=== PATIENT | male | born 1955 | race Caucasian/White ===

== ENCOUNTER 2021-12-17 04:46 | Inpatient (IN) ==
[2021-12-17] MEDS ORDERED: Naloxone 0.4 MG/ML INJ IVP PRN (11:02)
[2021-12-17] MEDS ORDERED: Ondansetron 4 MG/2 ML VIAL IVP PRN (11:02)
[2021-12-17] MEDS ORDERED: Melatonin 3 MG TABLET PO PRN (11:02)
[2021-12-17] MEDS ORDERED: Dextrose Gel 15 GM/37.5 ML TUBE PO PRN ×2 (11:03)
[2021-12-17] MEDS ORDERED: *HR* Dextrose 50 % in Water (Syg) 50 ML SYRINGE IVP PRN (11:03)
[2021-12-17] MEDS ORDERED: D5% in Water 1,000 ML IVC PRN (11:03)
[2021-12-17 15:32] LABS: Alanine Aminotransferase 39 Units/L (7-52); Albumin 3.4 g/dL (3.5-5.7); Albumin/Globulin Ratio 1.2 (1.1-2.2); Alkaline Phosphatase 163 Units/L (34-104); Aspartate Amino Transferase 61 Units/L (13-39); BUN/Creatinine Ratio 24 (6-26); Bilirubin,Direct 0.3 mg/dL (0.0-0.2); Bilirubin,Indirect 1.3 mg/dL (0.0-1.0); Bilirubin,Total 1.6 mg/dL (0.3-1.0); Blood Urea Nitrogen 24 mg/dL (8-23); Calcium 8.7 mg/dL (8.6-10.3); Carbon Dioxide 25 mEq/L (23-29); Chloride 104 mEq/L (98-107); Globulin 2.8 g/dL (2.4-3.5); Glucose 117 mg/dL (70-105); Osmolality,Calculated 287 (280-300); Potassium 4.6 mEq/L (3.5-5.1); Sodium 136 mEq/L (136-145); Total Protein 6.2 g/dL (6.4-8.9); eGFR For African Americans > 60 (> 60); eGFR For Non-African Americans > 60 (> 60)
[2021-12-17] MEDS: Sucralfate 1 GM TABLET PO SCH ×2 (16:15→20:12)
[2021-12-17] MEDS: Acetaminophen 325 MG TABLET PO PRN (16:15)
[2021-12-17] MEDS: Gabapentin 400 MG CAPSULE PO SCH ×2 (16:15→20:12)
[2021-12-17] MEDS: Furosemide 20 MG TABLET PO SCH (16:16)
[2021-12-17] MEDS: Lactulose Oral Soln 20 GM/30 ML UDC PO SCH ×2 (16:34→20:12)
[2021-12-17] MEDS: *HR* Heparin 5,000 UNIT/ML VIAL SQ SCH (18:32)
[2021-12-18 03:54] LABS: Alanine Aminotransferase 38 Units/L (7-52); Albumin 3.1 g/dL (3.5-5.7); Alkaline Phosphatase 150 Units/L (34-104); Aspartate Amino Transferase 59 Units/L (13-39); BUN/Creatinine Ratio 24 (6-26); Bilirubin,Total 1.4 mg/dL (0.3-1.0); Blood Urea Nitrogen 20 mg/dL (8-23); Calcium 8.7 mg/dL (8.6-10.3); Carbon Dioxide 22 mEq/L (23-29); Chloride 105 mEq/L (98-107); Globulin 3.1 g/dL (2.4-3.5); Glucose 100 mg/dL (70-105); Osmolality,Calculated 287 (280-300); Potassium 4.2 mEq/L (3.5-5.1); Sodium 137 mEq/L (136-145); Total Protein 6.2 g/dL (6.4-8.9); eGFR For African Americans > 60 (> 60); eGFR For Non-African Americans > 60 (> 60)
[2021-12-18] MEDS: *HR* Heparin 5,000 UNIT/ML VIAL SQ SCH ×2 (06:09→17:38)
[2021-12-18] MEDS: Sucralfate 1 GM TABLET PO SCH ×3 (07:55→21:46)
[2021-12-18] MEDS: Lactulose Oral Soln 20 GM/30 ML UDC PO SCH ×2 (07:56→21:48)
[2021-12-18] MEDS: Gabapentin 400 MG CAPSULE PO SCH ×3 (07:56→21:46)
[2021-12-18] MEDS: Furosemide 20 MG TABLET PO SCH (07:56)
[2021-12-18] MEDS ORDERED: Propranolol LA (24 HR) 80 MG CAP.SA.24H PO SCH (09:00)
[2021-12-18] MEDS ORDERED: lisinopriL 10 MG TABLET PO SCH (09:00)
[2021-12-18] MEDS ORDERED: Finasteride 5 MG TABLET PO SCH (09:00)
[2021-12-18 17:03] LABS: Influenza A PCR Negative (Negative); Influenza B PCR Negative (Negative); Resp. Syncytial Virus PCR Negative (Negative)
[2021-12-18 17:16] LABS: SARS-CoV-2 by PCR (In House) Positive (Negative)
[2021-12-18] MEDS: Acetaminophen 325 MG TABLET PO PRN (21:46)
[2021-12-18 22:50] VITALS: BP 123/48; PULSE 63; TEMP 97.7; O2SAT 95
== END 2021-12-18 23:31 | disposition other institution (70) | DRG 177 ==
LOC: 2NENU → SUATTDRO 08:24
PROVIDERS: ADMIT Internal Medicine; ATTEND Internal Medicine